=== PATIENT | male | born 1985 | race Caucasian/White ===

== ENCOUNTER → 2016-02-29 | Outpatient (CLI) | payer BC ==
[~2016-02-29] MED LIST: CETI10TA84 PO; FLUO40CA8 PO; IBUP-1050 PO; MAGNEVIST IV PRN; MULT-506 PO; OXYC-57 PO
--- NOTE | 2016-02-29 10:38 | DIAGNOSTIC IMAGING REPORT ---
FLUOROSCOPICALLY GUIDED RIGHT SHOULDER ARTHROGRAM PRE-MRI CLINICAL HISTORY: Right shoulder pain status post trauma COMPARISON STUDY: Conventional radiographic study dated 01/11/2016 FINDINGS: Timeout was performed. The risks of the procedure were explained the patient informed consent was obtained. The patient was prepped and draped in a sterile fashion. The skin was anesthetized 1% lidocaine. Under fluoroscopic guidance, a 22-gauge spinal needle was inserted into the joint capsule. A mixture of Optiray 300, saline, and gadolinium was instilled into the right shoulder joint. A single fluoroscopic spot image was acquired which document intra-articular location of the contrast. 14 seconds of fluoroscopic time was utilized IMPRESSION: Successful right shoulder arthrogram pre-MRI. Patient was sent to the MRI suite for further imaging. Electronically signed by: Kenneth Archuleta M.D. 02/29/2016 10:37 AM
--- NOTE | 2016-02-29 11:22 | DIAGNOSTIC IMAGING REPORT ---
POST ARTHROGRAM MRI OF THE RIGHT SHOULDER CLINICAL HISTORY: Right shoulder pain status post trauma COMPARISON STUDY: Conventional radiographic study dated 01/11/2016 FINDINGS: There is subtle irregularity of the lateral aspect of the humeral head. A prior minimal Hill-Sachs deformity cannot be excluded. The rotator cuff appears normal. The bicipital tendon appears normal. There is a tear involving the anterior inferior glenoid labrum. There is associated cartilaginous abnormality. Slight irregularity of the subscapularis tendon, likely relates to the contrast injection with interspersed contrast. The glenohumeral ligaments appear intact. IMPRESSION: 1. Tear of the anterior inferior glenoid labrum with an adjacent cartilaginous injury. 2. No evidence of rotator cuff tear Electronically signed by: Kenneth Archuleta M.D. 02/29/2016 11:20 AM
== END | disposition home or self-care (01) ==
LOC: C.MRIBC 09:40
PROVIDERS: ATTEND Family Medicine Sports Medicine
DX: M25.511 Pain in right shoulder (principal); S43.431A Superior glenoid labrum lesion of right shoulder, initial encounter; X58.XXXA Exposure to other specified factors, initial encounter

== ENCOUNTER → 2017-01-25 | Day surgery (SDC) | payer BC ==
[2017-01-04 15:52] VITALS: Ht 180.3 cm; Wt 68.2 kg
[~2017-01-25] VITALS: Ht 180.3 cm; Wt 68.2 kg
[~2017-01-25] MED LIST changes: +ATROPINE SULFATE 0.1 MG/ML 5ML SYR IV PRN; +CEFAZOLIN 1000MG IV PUSH 5 ML IV SCH; -CETI10TA84 PO; +EpHEDrine SULFATE INJ 50 MG/ML AMP IV PRN; +EpINEphrine INJ 1MG/ML AMP 1 MG/ML AMP ONE; +FENTANYL CITRATE INJ 50 MCG/1 ML 2 ML VIAL IV PRN; +FENTANYL CITRATE INJ 50 MCG/1 ML 2 ML VIAL ONE; -FLUO40CA8 PO; +GLYCOPYRROLATE INJ 0.2 MG/ML VIAL ONE; +LACTATED RINGER'S 1000ML 1,000 ML IV SCH; +LIDOCAINE HCL 2% 2 ML VIAL (20MG/ML) ONE; +LIDOCAINE/EPINEPHRINE 1% INJ 50 ML VIAL ONE; -MAGNEVIST IV PRN; +MIDAZOLAM HCL 1 MG/ML 2ML VIAL ONE; +MoRPHine SULFATE 2 MG/ML CARP IV PRN; +MoRPHine SULFATE 4 MG/ML 1 ML CARP\\VIAL IV PRN; +NEOSTIGMINE METHYLSULFATE 5 MG/5 ML SYR ONE; +ONDANSETRON INJ 2 MG/ML 2 ML VIAL IV PRN; +ONDANSETRON INJ 2 MG/ML 2 ML VIAL ONE; +OXYCODONE/ACETAMINOPHEN 5-325 TAB PO PRN; +PROPOFOL IV EMULSION 10 MG/ML 20 ML VIAL IV ONE; +ROCURONIUM BROMIDE 10 MG/ML 5 ML VIAL IV ONE; +ROPIVACAINE 0.5% 5 MG/ML 30 ML VIAL ONE; +SODIUM CHLORIDE 0.9% 1000ML 1,000 ML IV SCH
--- NOTE | 2017-01-25 12:04 | History & Physical Bridge Note ---
H&P Re-Evaluation Bridge Note: I have examined the patient, reviewed the History & Physical and in the interval since the performance of the History & Physical I have noted the following changes of clinical significance: No changes noted
--- NOTE | 2017-01-25 14:49 | [facility] Operative Report ---
Operative Report Operative Date Jan 25, 2017. Pre-Operative Diagnosis Right shoulder labral tear Post-Operative Diagnosis same as preop Procedure(s) Performed right shoulder arthroscopy with labral repair Surgeon Dr. Cote Assembler Metal Building Surgeon(s) LAMONT Amaral, MD Waldemar Estimated Blood Loss minimal Findings Torn and detached anterior inferior glenoid labrum Specimens none per surgeon. Anesthesia Gen. with interscalene block Complication(s) None Disposition Recovery Room / PACU Implants 2 bio composite 3.0 mm Arthrex suture tacks Indications Patient's 31-year-old male status post fall resulting in mechanical symptoms of his right shoulder. He has failed nonoperative management and has elected to proceed with operative intervention. His MRI supports a diagnosis of a torn labrum. He has not had any shoulder dislocations. Description of Procedure Informed consent was obtained. The patient was identified as Niya manriquez. He identified the operative site as the right shoulder. I marked with my initials. Preoperative surgical timeout was performed. He was taken to the operating room positioned supine on the operative table in the anesthetic was administered. He was positioned beachchair with the right side up. The torso secured to the table and axillary roll was inserted. Neck was held in neutral alignment and bony prominences were inspected and padded the right upper extremity was prepped and draped in usual sterile fashion and placed into a 10 pounds of balanced traction using the Arthrex shoulder tower. The examination under anesthesia showed full range of motion 190 of forward elevation and external rotation was about 85 and internal rotation 60. He had a grade 2 sulcus bilaterally which decrease in external rotation. He had a grade 2 anterior posterior translation which was equal bilaterally. The shoulder could not be dislocated. There was a palpable click with anterior translation of the right shoulder. DVT prophylaxis was not indicated. He received a preoperative dose of IV antibiotics. Posterior soft spot viewing portal was established followed by an anterior mid glenoid working portal. Diagnostic arthroscopy was performed. The articular surfaces were normal. Rotator cuff was intact. The biceps labrum and its attachment were normal. The axillary pouch was unremarkable there were no loose bodies and no humeral avulsion of the glenohumeral ligaments. Suture labrum was visualized from the anterior portal and found to be intact without evidence of detachment. There was some fraying of the anterosuperior labrum which was debrided but there was no detachment. Her was a tear from about 3:00 to 5:00 with a flap of labrum positioned inferiorly. This was debrided. It was also noted that there was perhaps a small cartilage defect 3 mm in size located at about the 3:30 o'clock position on the anterior labrum. An anterosuperior portal was established. An 8 mm cannula was inserted anteriorly and a 6 mm cannula superiorly. The outside in technique was utilized. The area of labral injury was probed and found to be stable however upon using a labral elevator it was noted to be of obviously detached over an area of about 15 mm in size. It was prepared with the elevator rasp and shaver/bur. A repair was then affected using 23.0 bio composite Arthrex suture tacks. The anchors were inserted first up on the articular surface of the glenoid. The [employer] suture shutter passer was utilized to take a 1 x 1 cm bite of capsular tissue and labrum. Some of the anterior labrum was deficient because of the tear. The labrum had been adequately mobilized. I think that this is more of a tear and detachment rather than tear causing instability. Suture management shuttling was performed and the knot was tied with a modified [place]. This was backed up with reversed half hitches on alternating posts. The initial anchors placed at 5:00 and another anchors placed at 3:00 using the same technique. This resulted in some aching of the capsule but more importantly a good bumper effect and repair of the labrum covering up the articular cartilage injury. The raz on through the shoulder pickup any loose debris the of scopic portals were closed with 4-0 nylon suture after removal of the cannulas. Traction was relieved at 1 sutures were tied. An AB D was placed in the armpit and simple sling was utilized followed by a bulky soft sterile dressing. Patient was then awakened from anesthesia difficulty and taken to the recovery room in stable condition. There were no specimens or complications. Counts are correct in the case. Blood loss was minimal. At the conclusion operation spoke the patient's family informed of my findings and gave detailed postoperative instructions. He'll be rehabilitated according to the arthroscopic [employer] repair protocol. I attest to the content of the Intraoperative Record and any orders documented therein. Any exceptions are noted below.
--- NOTE | 2017-01-25 14:57 | Discharge Instructions-SurgCtr ---
Discharge Instructions Date of Service Jan 25, 2017. Visit Reason for Visit: Right Shoulder Labral Tear Discharge Discharge Diagnosis / Problem: right shoulder labral tear Discharge Goals Goal(s): Decrease discomfort, Improve function, Increase independence Activity Recommendations Activity Limitations: per Instructions/Follow-up section Weightbearing Status: Right non-weightbearing (right upper extremity) Anesthesia . Post Anesthesia Instructions: If you have had General Anesthesia or IV Sedation: * Do not drive today. * Resume driving when surgeon permits. * Do not make important decisions or sign legal documents today. * Call surgeon for: 1. Temperature elevations greater than 101 degrees F. 2. Uncontrollable pain. 3. Excessive bleeding. 4. Persistent nausea and vomiting. 5. Medication intolerance (nausea, vomiting or rash). * For nausea and vomiting use only clear liquids such as: tea, soda, bouillon until nausea subsides, then gradually increase diet as tolerated. * If you have any concerns or questions, call your surgeon's office. If physician is unavailable and it is an emergency, call 911 or go to the nearest emergency room. . Instructions / Follow-Up Instructions / Follow-Up The following are instructions to follow after "Shoulder Surgery" including, Acromioplasty, Rotator Cuff Repair and Instability Surgery ACTIVITY RECOMMENDATIONS: * Minimize activity after surgery. * No excessive walking, jogging, sports or laboring. * Return to activity is individualized depending on the patient and type of surgery. * Driving is not permitted until at least your first post operative visit. Please ask your doctor when it is safe to resume driving. * Expect increased discomfort with increased activity. Continue to ice the shoulder as needed. SCHOOL/WORK RECOMMENDATIONS: * You may return to sedentary work or school when you are feeling more comfortable. This is usually 3-7 days after surgery. MEDICATIONS: * You will have a prescription for pain medication and an anti-inflammatory medication after surgery. * Use the pain medication for severe pain and the anti-inflammatory for less severe pain. Once the pain medication has run out, try to use the anti-inflammatory medication. If this is not effective, contact the office for assistance. * The pain medication may cause nausea, constipation and drowsiness. You should see how they affect you before driving or similar activity. * The anti-inflammatory medication may cause stomach upset and bleeding. If this occurs let your doctor know immediately . * Take a stool softener like Colace or a laxative like Senokot to prevent constipation. DIET: * Resume previous diet. SPECIAL CARE: ICE: You have the option of an ice cooler, gel packs or ice bags. * If you have an ice cooler, refer to the instructions for that device. The ice cooler may be used continuously. * If you do not have an ice cooler, you will need to use ice bags or gel packs. Do not apply ice directly to the skin. Use a thin dressing or magali shirt between the skin and ice bag. Apply ice for 20-30 minutes and repeat every 2-4 hours. This is especially important for the first 7-10 days after surgery. Once the pain improves, use ice as needed. ELEVATION: * You may be more comfortable sleeping in an upright position. Use the sling to elevate your arm. DRESSING: * Your dressing will be changed at your first therapy appointment approximately 4-5 days after surgery. Band-aids, tape strips or gauze may be applied. You may then change your dressing daily. * Reapply dressing followed by the EBIce cooling pad (if chosen) and then the sling. * Always wash your hands prior to touching the incision area. * Once the stitches are removed, you may leave the wound open to air or cover with gauze. * Expect some bloody drainage for the first few days after surgery. * Leave the tape strips, if present, in place for 5-7 days. * Band-aids and gauze may be changed daily. * There may be a gauze pad in your armpit area. This can be changed daily or replaced by a dry washcloth. SLING/BRACE: * You will need to use a sling or brace after surgery. The length of time the sling is used is dependent upon the type of surgery performed. * Arthroscopic Acromioplasty requires use of the sling for 2-4 weeks for comfort. * Labral procedures and Rotator Cuff Repairs require use of the sling for a longer period of time. Please check with your doctor prior to discontinuing the sling. BATHING: * You may shower or sponge-bathe immediately after surgery. The post operative shoulder dressing is mostly water-tight. You may shower right over this dressing, but be reasonably careful not to get the gauze or incision wet. * Once the dressing has been changed on the fourth or fifth day after surgery, you may shower and get the incision wet. * Wash with regular soap and water. * Do not bathe (submerge the incision), soak, swim or use a hot tub until the incision is completely healed over with normal skin and the doctor has given the OK to proceed. * There is no need to apply any ointments, powders or salves to your incision. * Do not apply alcohol or hydrogen peroxide directly to the incision. * Diluted peroxide (50:50 mixture with sterile saline) may be used to clean dried blood from around the incision area. THERAPY: * You will begin therapy four or five days after surgery. * Organized therapy with the therapist is important for the first 2-4 months after surgery depending on the type of procedure. During that time you will attend therapy 1-3 times per week. * You will also need to do daily exercises for range of motion and strength as instructed. * Patients who have a Capsular Shift Procedure will need to abide by temporary range of motion limitations. * Patients having Rotator Cuff Surgery are not allowed to actively lift their arms until 4-6 weeks after surgery. * Please check with your doctor regarding appropriate motion restrictions. FOLLOW UP VISIT: * If not already scheduled, please call the office at to schedule a follow-up appointment for 10 days after surgery and monthly thereafter. * You have physical therapy appointment scheduled for 01/29/2017 at 10:30 AM * You've a follow-up scheduled with Dr. Ravi Cote on 02/07/2017 at 1:00 PM Diet Recommendations Home Diet: no limitations, resume previous diet Procedures Procedures Performed: right shoulder arthroscopy with labral repair Pending Studies Studies pending at discharge: no Medical Emergencies . Who to Call and When: Medical Emergencies: If at any time you feel your situation is an emergency, please call 911 immediately. . Non-Emergent Contact Non-Emergency issues call your: Surgeon Call Non-Emergent contact if: temperature is above 101.5, your pain is not controlled, wound has increased drainage, wound has increased redness, wound has increased pain, you have any medication questions . . "Provider Documentation" section prepared by Ibis Chacon. .
--- NOTE | 2017-01-25 15:00 | [facility] Operative Report ---
Operative Report Operative Date Jan 25, 2017. Pre-Operative Diagnosis Right shoulder labral tear Post-Operative Diagnosis same as preop Procedure(s) Performed right shoulder arthroscopy with labral repair Surgeon Dr. Cote Lead Radiation Therapist Surgeon(s) LAMONT Ulloa, MD Waldemar Estimated Blood Loss minimal Findings right shoulder labral tear Specimens none per surgeon. Drains None Anesthesia Gen. with interscalene block Complication(s) None Disposition Recovery Room / PACU (stable) Indications Patient is a 31-year-old male status post right shoulder injury with recurrent instability. X-ray showed no bony abnormality but MR arthrogram revealed probable labral tear of his right shoulder. He has failed conservative treatment over the past few months. Surgical intervention discussed and he wished to proceed with surgery. Risks and complications were discussed and informed consent was obtained. Description of Procedure Patient was taken to the operating room placed in the left lateral decubitus position. He was placed under general anesthesia. He was given 1 g of IV Ancef for surgical prophylaxis. Timeout was performed. He was prepped and draped in routine sterile fashion. I was present during the entire case, please see Dr. Cote's operative report for further detail. Patient was awakened and transferred to recovery room in stable condition. I attest to the content of the Intraoperative Record and any orders documented therein. Any exceptions are noted below.
[2017-01-25 16:15] VITALS: BP 107/64; PULSE 67; TEMP 36.7; O2SAT 95
--- NOTE | 2017-01-25 16:22 | Anesthesia Progress Nt - [facility] ---
Anesthesia Post Op Note Date & Time Jan 25, 2017 at 16:22 Vital Signs Pain Intensity: 0 Vital Signs Past 12 Hours Date Time Temp Pulse Resp B/P (MAP) Pulse Ox O2 Delivery O2 Flow Rate FiO2 01/25/17 16:15 36.7 67 16 107/64 (78) 95 Room Air 01/25/17 15:43 36.9 68 16 116/72 (87) 100 Room Air 01/25/17 15:26 113/73 01/25/17 15:25 37.0 100 Room Air 01/25/17 15:22 68 20 01/25/17 15:22 68 20 100 01/25/17 15:21 111/68 01/25/17 15:17 62 23 01/25/17 15:17 62 23 100 01/25/17 15:16 119/66 01/25/17 15:12 63 15 100 01/25/17 15:12 64 15 01/25/17 15:11 119/74 01/25/17 15:08 64 21 100 01/25/17 15:08 64 21 01/25/17 15:07 67 19 01/25/17 15:07 68 19 100 01/25/17 15:06 115/67 01/25/17 15:02 66 16 100 01/25/17 15:02 65 16 01/25/17 15:01 112/79 01/25/17 14:57 71 17 100 01/25/17 14:57 71 17 01/25/17 14:56 111/64 01/25/17 14:55 37.0 76 16 113/70 100 Mask 6 01/25/17 14:55 113/70 01/25/17 12:37 0 01/25/17 12:36 125/65 01/25/17 12:36 125/65 01/25/17 12:34 83 15 100 01/25/17 12:34 87 01/25/17 12:34 83 15 100 01/25/17 12:34 87 01/25/17 12:31 118/72 01/25/17 12:31 118/72 01/25/17 12:29 79 17 100 01/25/17 12:29 79 17 100 01/25/17 12:29 79 01/25/17 12:29 79 01/25/17 12:26 126/75 01/25/17 12:26 126/75 01/25/17 12:24 89 01/25/17 12:24 89 22 100 01/25/17 12:24 89 22 100 01/25/17 12:24 89 01/25/17 12:21 125/80 01/25/17 12:21 125/80 01/25/17 12:19 90 01/25/17 12:19 90 01/25/17 12:19 88 34 100 01/25/17 12:19 88 34 100 01/25/17 12:16 121/71 01/25/17 12:16 121/71 01/25/17 12:14 82 01/25/17 12:14 82 01/25/17 12:14 84 17 100 01/25/17 12:14 84 17 100 01/25/17 12:11 120/74 01/25/17 12:11 120/74 01/25/17 12:11 81 4 138/70 (92) 100 Mask 6 01/25/17 12:09 102 26 100 01/25/17 12:09 102 26 100 01/25/17 12:09 103 01/25/17 12:09 103 01/25/17 12:06 128/79 01/25/17 12:06 128/79 01/25/17 12:04 95 01/25/17 12:04 95 01/25/17 12:04 94 12 100 01/25/17 12:04 94 12 100 01/25/17 12:01 138/70 01/25/17 12:01 138/70 01/25/17 10:29 37.1 85 16 121/70 (87) 100 Room Air Notes Mental Status: alert / awake / arousable, participated in evaluation Pt Amnestic to Procedure: Yes Nausea / Vomiting: adequately controlled Pain: adequately controlled Airway Patency, RR, SpO2: stable & adequate BP & HR: stable & adequate Hydration State: stable & adequate Anesthetic Complications: no major complications apparent
== END | disposition home or self-care (01) ==
LOC: X.SURG 10:10
PROVIDERS: ATTEND Physical Medicine & Rehabilitation Sports Medicine
DX: S43.439A Superior glenoid labrum lesion of unspecified shoulder, initial encounter (principal); W19.XXXA Unspecified fall, initial encounter; J45.909 Unspecified asthma, uncomplicated; Z91.013 Allergy to seafood; Z80.0 Family history of malignant neoplasm of digestive organs; Z83.3 Family history of diabetes mellitus; Z82.49 Family history of ischemic heart disease and other diseases of the circulatory system; Z98.818 Other dental procedure status

== ENCOUNTER → 2017-02-10 | Outpatient (CLI) | payer BC ==
[~2017-02-10] MED LIST changes: -ATROPINE SULFATE 0.1 MG/ML 5ML SYR IV PRN; -CEFAZOLIN 1000MG IV PUSH 5 ML IV SCH; -EpHEDrine SULFATE INJ 50 MG/ML AMP IV PRN; -EpINEphrine INJ 1MG/ML AMP 1 MG/ML AMP ONE; -FENTANYL CITRATE INJ 50 MCG/1 ML 2 ML VIAL IV PRN; -FENTANYL CITRATE INJ 50 MCG/1 ML 2 ML VIAL ONE; -GLYCOPYRROLATE INJ 0.2 MG/ML VIAL ONE; -LACTATED RINGER'S 1000ML 1,000 ML IV SCH; -LIDOCAINE HCL 2% 2 ML VIAL (20MG/ML) ONE; -LIDOCAINE/EPINEPHRINE 1% INJ 50 ML VIAL ONE; -MIDAZOLAM HCL 1 MG/ML 2ML VIAL ONE; -MoRPHine SULFATE 2 MG/ML CARP IV PRN; -MoRPHine SULFATE 4 MG/ML 1 ML CARP\\VIAL IV PRN; -NEOSTIGMINE METHYLSULFATE 5 MG/5 ML SYR ONE; -ONDANSETRON INJ 2 MG/ML 2 ML VIAL IV PRN; -ONDANSETRON INJ 2 MG/ML 2 ML VIAL ONE; -OXYCODONE/ACETAMINOPHEN 5-325 TAB PO PRN; -PROPOFOL IV EMULSION 10 MG/ML 20 ML VIAL IV ONE; -ROCURONIUM BROMIDE 10 MG/ML 5 ML VIAL IV ONE; -ROPIVACAINE 0.5% 5 MG/ML 30 ML VIAL ONE; -SODIUM CHLORIDE 0.9% 1000ML 1,000 ML IV SCH
--- NOTE | 2017-02-10 11:13 | DIAGNOSTIC IMAGING REPORT ---
RIGHT UPPER EXTREMITY VENOUS DOPPLER HISTORY: PAIN IN RIGHT ELBOW COMPARISON STUDY: None. FINDINGS: The right internal jugular vein is patent. There is normal flow within the right subclavian vein. There is normal flow and compressibility within the right axillary, basilic, brachial, radial, ulnar, and visualized cephalic veins. IMPRESSION: No DVT within the right upper extremity. Electronically signed by: Edgardo Alonso M.D. 02/10/2017 11:12 AM Dictated Date/Time: 02/10/2017 11:04 AM
== END | disposition home or self-care (01) ==
LOC: C.ULTR 10:17
PROVIDERS: ATTEND Family Medicine Adolescent Medicine
DX: M25.521 Pain in right elbow (principal)

== ENCOUNTER → 2017-06-15 | Outpatient (CLI) | payer BC, OTHER | LOC: C.RDSM 17:09 | PROVIDERS: ATTEND Physical Medicine & Rehabilitation Sports Medicine | DX: M75.91 Shoulder lesion, unspecified, right shoulder (principal) ==